=== PATIENT | male | born 1990 | race Caucasian/White ===

== ENCOUNTER 2019-09-01 18:40 | Inpatient (IN) ==
--- NOTE | 2019-09-01 19:09 | ERNOTE ---
Abdominal HPI - Narrative Date of Service: 09/01/19 - General Chief Complaint: Abdominal Pain Time Seen by Provider: 09/01/19 18:52 Source: patient Exam Limitations: no limitations - Immun/Allergies/Home Medications Immunizatons: IMMUNIZATION HX Immunizations Up to Date Yes History of Influenza Vaccine No Hx Pneumococcal Vaccination No Allergies/Adverse Reactions: Allergies diphenhydramine HCl [From Benadryl] Allergy (Verified 08/22/19 10:52) Home Medications: HOME MEDICATIONS Atorvastatin Calcium 40 mg PO HS 10/03/15 [Last Taken 10/02/15 22:00] Aspirin 81 mg PO DAILY 10/04/15 [Last Taken 10/03/15 11:00 81] metoprolol tartrate 50 mg tablet 150 mg PO BID tab 04/27/18 [Last Taken Unknown] spironolactone 50 mg tablet 50 mg PO DAILY 08/22/19 [Last Taken Unknown] methylprednisolone 4 mg tablets in a dose pack See Rx Instructions PO PER PKG DIR #21 tab 08/26/19 [Last Taken Unknown] Losartan Potassium 25 mg PO DAILY 09/01/19 [Last Taken Unknown] Verapamil HCl [Verapamil ER] 360 mg PO DAILY 09/01/19 [Last Taken Unknown] - History of Present Illness Narrative: Patient presents to the emergency room for abdominal pain since 7 AM this morning along with nausea. Patient states the pain is mid abdomen and does radiate through his back. Date (Duration): 09/01/19 Activities at Onset: none Associated Symptoms: Present: nausea Prior Abdominal Problems: Present: none Review of Systems - Review of Systems Constitutional: Present: no symptoms reported EYE: Present: no symptoms reported ENT: Present: no symptoms reported Respiratory: Present: no symptoms reported Cardiology: Present: no symptoms reported Gastrointestinal/Abdominal: Present: See HPI, nausea, abdominal pain Genitourinary: Present: no symptoms reported Musculoskeletal: Present: no symptoms reported Skin: Present: no symptoms reported Neurological: Present: no symptoms reported Endocrine: Present: no symptoms reported Hematologic/Lymphatic: Present: no symptoms reported Psych: Present: no symptoms reported All Other Systems: All systems neg except as marked Medical History (Last Reviewed 09/01/19 @ 18:48 by Sri Painting RN) Accelerated essential hypertension Onset Date: 08/10/15 HOCM (hypertrophic obstructive cardiomyopathy) Ischemic stroke Surgical History: Surgical History (Last Reviewed 09/01/19 @ 18:48 by Sri Painting RN) History of appendectomy History of cholecystectomy Onset Date: ~2016 Pacemaker Family History: Family History (Last Reviewed 09/01/19 @ 18:48 by Sri Painting RN) Father Diabetes Hypertension Mother Asthma Hypertension Social History: (Last Reviewed 09/01/19 @ 18:48 by Sri Painting RN) Social History: Marital status: Single Service: No Tobacco: Smoking Status: Never smoker Alcohol: alcohol intake: current alcohol intake frequency: holiday/special occasion Substance Use: substance use type: does not use Dietary Habits: caffeine: Yes Physical Exam - Physical Exam Narrative: Patient has mild tenderness with palpation to right upper quadrant and middle abdominal area. Denies back pain but states pain does radiate through to the back General Appearance: Present: wd/wn, alert, no apparent distress Head Exam: Present: normal inspection, no evidence of injury Eye Exam: Normal inspection: bilateral Ears, Nose, Throat: Present: normal ENT inspection, normal pharynx Neck: Present: normal inspection, nontender Respiratory: Present: no respiratory distress, normal breath sounds, no accessory muscle use, chest nontender Cardiovascular/Chest: Present: regular rate, rhythm, no murmur Gastrointestinal/Abdominal: Present: normal bowel sounds, soft, tenderness Back Exam: Present: normal inspection, no CVA tenderness, no vertebral tenderness Extremity Exam: Present: normal inspection, normal range of motion Neurological Exam: Present: alert, oriented, normal mood/affect, no motor/sensory deficits Skin Exam: Present: normal color, warm/dry Lymphatic Exam: Present: no adenopathy Progress - Results and Orders Patient's Lab Results:: I have reviewed the patient's lab results. - Vital Signs Patient's Vital Signs:: I have reviewed the patient's vital signs. Vital Signs: Vital Signs 09/01/19 18:43 Temperature 36.6 C Pulse Rate 68 Respiratory Rate 18 Blood Pressure 193/105 H O2 Sat by Pulse Oximetry 97 - X-Ray X-Ray #1 X-Ray: abdomen Interpretation: Reviewed by me X-ray Comments: Nonobstructive bowel pattern - CT/Ultrasound CT/Ultrasound Narrative: Acute pancreatitis, moderate peripancreatic inflammatory changes with ill- defined fluid consistent with acute pancreatitis - Progress/Reassessment Chief Complaint: Abdominal Pain Progress:: Improved Plan - Plan Plan: Patient will be admitted for acute pancreatitis Departure Clinical Impression: Pancreatitis, acute Qualifiers: Pancreatitis type: unspecified pancreatitis type Acute pancreatitis co mplication: unspecified Qualified Code(s): K85.90 - Acute pancreatitis without necrosis or infection, unspecified - Departure Disposition: Short Term Hospital Inpatient Condition: Stable Referrals: Leilani Guerrero MD [Primary Care Provider] -
[2019-09-01 19:11] LABS: Hematocrit 47.7 % (42.0-52.0); Hemoglobin 16.6 gm/dL (13.5-18.0); Mean Cell Volume 89.2 fl (78-100); Mean Corpuscular Hgb Conc 34.8 g/dl (32-36); Mean Platelet Volume 9.8 fl (8-11.3); Neutrophil # 13.2 K/mm3 (1.3-6.0); Neutrophil % 86.2 % (42-75.0); Platelet Count 276 K/mm3 (150-450); Red Blood Count 5.35 M/mm3 (4.7-6.0); Red Cell Distribution Width 13.4 % (11.5-14.0); White Blood Count 15.3 K/mm3 (4.0-10.5)
[2019-09-01 19:22] LABS: Prothrombin Time (Patient) 10.2 Seconds (9.1-10.7)
[2019-09-01 19:26] LABS: Albumin * 4.2 gm/dl (3.4-5.0); Anion Gap 16.4 mmol/L (6.8-13.8); BUN/Creatinine Ratio 25.7 (9.0-21.6); Bilirubin, Total 0.5 mg/dL (0.0-1.1); Ca. Corrected For Albumin 8.7 mg/dL (8.4-10.2); Calcium * 9.2 mg/dL (7.9-10.9); Carbon Dioxide 23.1 mmol/L (24-32.6); INR 1.03 INR (0.92-1.08); Potassium 4.5 mmol/L (3.4-4.6); Total Protein 7.5 gm/dL (6.2-8.2)
[2019-09-01 19:27] LABS: Urine Appearance Clear (CLEAR); Urine Color Yellow
[2019-09-01 19:29] LABS: Urine Bilirubin Negative (NEGATIVE); Urine Ketone Negative (NEGATIVE); Urine Nitrite Negative (NEGATIVE); Urine Protein 30 mg/dL (NEGATIVE); Urine Urobilinogen Normal (NORMAL); Urine WBC None Seen /hpf (0-5); Urine pH 5.5 pH (5.0-7.0)
[2019-09-01 19:30] LABS: Urine Bacteria None Seen; Urine Blood 5 /ul (NEGATIVE); Urine RBC 0-5 /hpf (0-5)
[2019-09-01] MEDS ORDERED: cefTRIAXone SODIUM 1,000 MG/100 ML BAG IV ONE (20:03)
[2019-09-01] MEDS ORDERED: HYDROmorphone HCL 2 MG/ML VIAL IV ONE (20:29)
[2019-09-01] MEDS ORDERED: NORMAL SALINE 1,000 ML IV PRN (20:29)
[2019-09-01] MEDS: metroNIDAZOLE/SODIUM CHLORIDE 500 MG/100 ML BAG IV SCH (20:53)
[2019-09-01] MEDS ORDERED: ACETAMINOPHEN 650 MG SUPP.RECT RC PRN (22:27)
[2019-09-01] MEDS ORDERED: LIDOCAINE HCL 50 ML VIAL IM ONE (22:38)
[2019-09-01] MEDS ORDERED: NORMAL SALINE 1,000 ML IV ONE (22:56)
--- NOTE | 2019-09-01 23:19 | HP ---
Chief Complaint - Chief Complaint Date of Service: 09/01/19 Time of Service: 23:06 Chief Complaint: I have abdominal pain and nausea since this morning History of Present Illness: 29-year-old male with past medical history of accelerated hypertension, morbid obesity, hypertrophic obstructive cardiomyopathy, ischemic stroke, acute pancreatitis, pacemaker status, cholecystectomy, appendectomy was evaluated in the ER due to severe epigastric abdominal pain accompanied by nausea that started this morning at his home. Patient reports his pain started shortly after eating 2 pieces of laughlin he developed the pain in his epigastric region that radiated to his back. He rates 8 out of 10 intensity and is sharp in nature. Patient reports having a similar pain a year and a half ago when he was diagnosed with acute pancreatitis due to an unknown cause. Patient denies any fever, chills, or vomiting. He is under the care of a devops to manage his HOCM, and has a pacemaker in place. He is currently being managed with beta-blockers, spironolactone, and other antihypertensives. Patient was found to have elevated pancreatic enzymes and leukocytosis on labs which makes a diagnosis of acute pancreatitis very likely. Given his cardiac condition, we will hydrate him mildly and carefully to avoid fluid overload or pulmonary edema. Medical History (Last Reviewed 09/01/19 @ 21:17 by Preeti Gudino RN) Accelerated essential hypertension Onset Date: 08/10/15 HOCM (hypertrophic obstructive cardiomyopathy) Ischemic stroke Surgical History: Surgical History (Last Reviewed 09/01/19 @ 21:17 by Preeti Gudino RN) History of appendectomy History of cholecystectomy Onset Date: ~2015 Pacemaker Family History: Family History (Last Reviewed 09/01/19 @ 21:17 by Preeti Gudino RN) Father Diabetes Hypertension Mother Asthma Hypertension Social History: (Last Reviewed 09/01/19 @ 21:17 by Preeti Gudino RN) Social History: Marital status: Single Service: No Tobacco: Smoking Status: Never smoker Alcohol: alcohol intake: current alcohol intake frequency: holiday/special occasion Substance Use: substance use type: does not use Dietary Habits: caffeine: Yes Peds Patient Hx - Developmental: No Pertinent Hx Peds Patient Hx - Medical: No Pertinent Hx Peds Patient Hx - Cardiac/Respiratory: No Pertinent Hx Peds Patient Hx - Surgical: No Surgical History Patient History - Cancer: No Hx of Cancer Review Of Systems (GEN) - Review of Systems Generalized/Overall Review: Present: No Symptoms Reported EENTM: Present: No Symptoms Reported Respiratory: Present: No Symptoms Reported Cardiac: Present: No Symptoms Reported Abdominal: Present: Nausea, Abdominal Pain - Epigastric pain Genitourinary: Present: No Symptoms Reported Musculoskeletal: Present: No Symptoms Reported Neurological: Present: No Symptoms Reported Skin: Present: No Symptoms Reported Endocrine: Present: No Symptoms Reported Immunizations: IMMUNIZATION HX Immunizations Up to Date Yes History of Influenza Vaccine No Hx Pneumococcal Vaccination No Allergies/Adverse Reactions: Allergies Allergy/AdvReac Type Severity Reaction Status Date / Time diphenhydramine HCl Allergy Ver[facility] 08/22/19 10:52 [facility] Home Medications: HOME MEDICATIONS Atorvastatin Calcium 40 mg PO HS 10/03/15 [Last Taken 10/02/15 22:00] Aspirin 81 mg PO DAILY 10/04/15 [Last Taken 10/03/15 11:00 81] metoprolol tartrate 50 mg tablet 150 mg PO BID tab 04/27/18 [Last Taken Unknown] spironolactone 50 mg tablet 50 mg PO DAILY 08/22/19 [Last Taken Unknown] methylprednisolone 4 mg tablets in a dose pack See Rx Instructions PO PER PKG DIR #21 tab 08/26/19 [Last Taken Unknown] Losartan Potassium 25 mg PO DAILY 09/01/19 [Last Taken Unknown] Verapamil HCl [Verapamil ER] 360 mg PO DAILY 09/01/19 [Last Taken Unknown] Exam - Exam Vital Signs: Vital Signs - Last Taken Temp 36.2 C 09/01/19 21:25 Pulse 72 09/01/19 22:30 Resp 18 09/01/19 21:25 BP 169/106 H 09/01/19 21:25 Pulse Ox 97 09/01/19 21:25 Constitutional: Present: Alert, Oriented x3, Cooperative, Well developed, Well nourished, No distress, Morbidly obese ENT Exam: Present: normal ENT inspection, hearing grossly normal, pharynx normal, TMs normal Eye Exam: bilateral eye: normal inspection, PERRL, EOMI Neck: Present: non-tender, full range of motion, supple, normal inspection, trachea midline Back Exam: Present: normal inspection, no CVA tenderness, no vertebral tenderness Breasts: Present: Exam deferred Respiratory: Present: chest non-tender, lungs clear, normal breath sounds, no respiratory distress, no accessory muscle use Cardiovascular/Chest: Present: normal peripheral pulses, regular rate, rhythm, no chest tenderness, no edema, no gallop, no JVD, no murmur, no rub Peripheral Pulses: carotid (R): 3+, carotid (L): 3+, femoral (R): 3+, femoral (L): 3+, dorsalis-pedis (R): 3+, dorsalis-pedis (L): 3+ Abdomen: Present: Normal bowel sounds, soft, no masses, obese, tender - Epigastric and left flank tenderness on deep palpation, guarding /Rectal: Present: Exam deferred Extremity: Present: normal range of motion, non-tender, normal inspection, no pedal edema, no calf tenderness, normal capillary refill, pelvis stable Skin Exam: Present: normal color, warm/dry, no cyanosis Lymphatic: Present: no adenopathy Neurologic: Present: senior energy market coordinator II-XII nml as tested, normal cerebellar test, no motor/sensory deficits, alert, normal mood/affect, oriented x 3 Appearance: Present: appropriate appearance, appropriate insight, neat, no memory impairment Eye contact: Present: cooperative, good eye contact, normal speech, avoids eye contact Thoughts: Present: normal thought pattern, no apparent hallucination Diagnostic Studies: Abnormal Lab Results 09/01/19 09/01/19 09/01/19 Range/Units 18:53 18:58 19:00 WBC 15.3 H (4.0-10.5) K/mm3 Immature Gran % (Auto) 0.70 H (0.001-0.429) % Immature Gran # (Auto) 0.10 H (0.000-0.0310) K/mm3 Neutrophils % 86.2 H (42-75.0) % Lymphocytes % 8.1 L (20-51) % Neutrophils # 13.2 H (1.3-6.0) K/mm3 Lymphocytes # 1.23 L (1.5-3.5) k/mm3 Carbon Dioxide 23.1 L (24-32.6) mmol/L Anion Gap 16.4 H (6.8-13.8) mmol/L BUN 29 H (6-23) mg/dL BUN/Creatinine Ratio 25.7 H (9.0-21.6) Random Glucose 284 H (70-110) mg/dL Lactic Acid, Venous (0.4-2.0) mmol/L ALT 79 H (19-67) U/L Lipase 7362 H (73-393) U/L Urine Protein 30 H (NEGATIVE) mg/dL Urine Glucose (UA) >=1000 H (NEGATIVE) mg/dL Urine Blood 5 H (NEGATIVE) /ul 09/01/19 09/01/19 Range/Units 19:00 22:00 WBC (4.0-10.5) K/mm3 Immature Gran % (Auto) (0.001-0.429) % Immature Gran # (Auto) (0.000-0.0310) K/mm3 Neutrophils % (42-75.0) % Lymphocytes % (20-51) % Neutrophils # (1.3-6.0) K/mm3 Lymphocytes # (1.5-3.5) k/mm3 Carbon Dioxide (24-32.6) mmol/L Anion Gap (6.8-13.8) mmol/L BUN (6-23) mg/dL BUN/Creatinine Ratio (9.0-21.6) Random Glucose (70-110) mg/dL Lactic Acid, Venous 2.8 H* 2.8 H* (0.4-2.0) mmol/L ALT (19-67) U/L Lipase (73-393) U/L Urine Protein (NEGATIVE) mg/dL Urine Glucose (UA) (NEGATIVE) mg/dL Urine Blood (NEGATIVE) /ul Laboratory Results WBC 15.3 K/mm3 (4.0-10.5) H 09/01/19 18:53 RBC 5.35 M/mm3 (4.7-6.0) 09/01/19 18:53 Hgb 16.6 gm/dL (13.5-18.0) 09/01/19 18:53 Hct 47.7 % (42.0-52.0) 09/01/19 18:53 MCV 89.2 fl (78-100) 09/01/19 18:53 MCH 31.0 pg (27-31) 09/01/19 18:53 MCHC 34.8 g/dl (32-36) 09/01/19 18:53 RDW 13.4 % (11.5-14.0) 09/01/19 18:53 Plt Count 276 K/mm3 (150-450) 09/01/19 18:53 MPV 9.8 fl (8-11.3) 09/01/19 18:53 Immature Gran % (Auto) 0.70 % (0.001-0.429) H 09/01/19 18:53 Immature Gran # (Auto) 0.10 K/mm3 (0.000-0.0310) H 09/01/19 18:53 Neutrophils % 86.2 % (42-75.0) H 09/01/19 18:53 Lymphocytes % 8.1 % (20-51) L 09/01/19 18:53 Monocytes % 4.4 % (0.0-9) 09/01/19 18:53 Eosinophils % 0.3 % (0.0-3.0) 09/01/19 18:53 Basophils % 0.3 % (0.0-1.0) 09/01/19 18:53 Nucleated RBC % 0.0 k/mm3 (0-1) 09/01/19 18:53 Neutrophils # 13.2 K/mm3 (1.3-6.0) H 09/01/19 18:53 Lymphocytes # 1.23 k/mm3 (1.5-3.5) L 09/01/19 18:53 Monocytes # 0.7 k/mm3 (0.0-1.0) 09/01/19 18:53 Eosinophils # 0.1 k/mm3 (0.0-0.7) 09/01/19 18:53 Absolute Basophils 0.0 k/mm3 (0.0-0.1) 09/01/19 18:53 PT 10.2 Seconds (9.1-10.7) 09/01/19 19:00 INR (Anticoag Therapy) 1.03 INR (0.92-1.08) 09/01/19 19:00 Sodium 133 mmol/L (132-142) 09/01/19 19:00 Plasma Sodium 136 mmol/L (130-142) 09/01/19 19:00 Potassium 4.5 mmol/L (3.4-4.6) 09/01/19 19:00 Chloride 98 mmol/L (97-106) 09/01/19 19:00 Carbon Dioxide 23.1 mmol/L (24-32.6) L 09/01/19 19:00 Anion Gap 16.4 mmol/L (6.8-13.8) H 09/01/19 19:00 BUN 29 mg/dL (6-23) H 09/01/19 19:00 Creatinine 1.13 mg/dL (0.4-1.4) 09/01/19 19:00 Est GFR (Non-Af Amer) 80 mL/min (60-130) 09/01/19 19:00 BUN/Creatinine Ratio 25.7 (9.0-21.6) H 09/01/19 19:00 Random Glucose 284 mg/dL (70-110) H 09/01/19 19:00 Lactic Acid, Venous 2.8 mmol/L (0.4-2.0) H* 09/01/19 22:00 Calcium 9.2 mg/dL (7.9-10.9) 09/01/19 19:00 Calcium Adj for Albumin 8.7 mg/dL (8.4-10.2) 09/01/19 19:00 Total Bilirubin 0.5 mg/dL (0.0-1.1) 09/01/19 19:00 AST 31 U/L (0-48) 09/01/19 19:00 ALT 79 U/L (19-67) H 09/01/19 19:00 Alkaline Phosphatase 75 U/L (50-170) 09/01/19 19:00 C-Reactive Prot, Quant 0.4 mg/dL (0.0-0.9) 09/01/19 22:05 Total Protein 7.5 gm/dL (6.2-8.2) 09/01/19 19:00 Albumin 4.2 gm/dl (3.4-5.0) 09/01/19 19:00 Lipase 7362 U/L (73-393) H 09/01/19 19:00 Urine Color Yellow 09/01/19 18:58 Urine Appearance Clear (CLEAR) 09/01/19 18:58 Urine pH 5.5 pH (5.0-7.0) 09/01/19 18:58 Ur Specific [place] 1.030 SP.GR. (1.005-1.030) 09/01/19 18:58 Urine Protein 30 mg/dL (NEGATIVE) H 09/01/19 18:58 Urine Glucose (UA) >=1000 mg/dL (NEGATIVE) H 09/01/19 18:58 Urine Ketones Negative mg/dL (NEGATIVE) 09/01/19 18:58 Urine Blood 5 /ul (NEGATIVE) H 09/01/19 18:58 Urine Nitrate Negative (NEGATIVE) 09/01/19 18:58 Urine Bilirubin Negative mg/dl (NEGATIVE) 09/01/19 18:58 Prot Sulfosalicylic Acd 1+ mg/dL (0) 09/01/19 18:58 Urine Urobilinogen Normal EU/dl (NORMAL) 09/01/19 18:58 Ur Leukocyte Esterase Negative /ul (NEGATIVE) 09/01/19 18:58 Urine RBC 0-5 /hpf (0-5) 09/01/19 18:58 Urine WBC None seen /hpf (0-5) 09/01/19 18:58 Ur Epithelial Cells 0-5 /hpf (0-5) 09/01/19 18:58 Urine Bacteria None seen (NONE) 09/01/19 18:58 Urine Culture Comments No culture indicated 09/01/19 18:58 Assessment/Plan - Narrative Narrative: Patient was evaluated and medical chart was reviewed and decision to admit to our [facility] floor for diagnosis of acute pancreatitis was made. Patient was found to have elevated lactic acid and leukocytosis, IV antibiotics and IV fluids were started. Due to the patient's extensive cardiac history and high risk for fluid overload, will only manage with mild hydration for his acute pancreatitis. Patient was placed n.p.o. and pain medications were ordered to be given on a as needed basis, antiemetics were also ordered on an as-needed basis. His blood pressure is elevated at the moment so his antihypertensives were gagan nciled to be administered during hospitalization. Daily pancreatic enzymes were ordered to follow-up on his acute pancreatitis. - Assessment/Plan (1) Pancreatitis, acute Problem: Acute Qualifiers: Pancreatitis type: unspecified pancreatitis type Acute pancreatitis complication: unspecified Qualified Code(s): K85.90 - Acute pancreatitis without necrosis or infection, unspecified (2) Abdominal pain Problem: Acute (3) Nausea Problem: Acute (4) HOCM (hypertrophic obstructive cardiomyopathy) Problem: Acute (5) H/O acute pancreatitis Problem: Acute (6) HTN (hypertension) Problem: Acute
[2019-09-01] MEDS: METOPROLOL TARTRATE 50 MG TABLET PO SCH (23:30)
[2019-09-01] MEDS: ROSUVASTATIN CALCIUM 20 MG TABLET PO SCH (23:30)
[2019-09-01] MEDS: MEPERIDINE HCL/PF 50 MG/ML SYRG IV PRN (23:30)
[2019-09-01] MEDS: ONDANSETRON HCL 4 MG TABLET PO PRN (23:30)
[2019-09-02] MEDS: FAMOTIDINE 20 MG in DEXTROSE 5 % IN WATER 100 ML IV SCH ×6 (00:22→21:44)
[2019-09-02] MEDS: metroNIDAZOLE/SODIUM CHLORIDE 500 MG/100 ML BAG IV SCH ×4 (03:19→20:15)
[2019-09-02 06:19] LABS: Hemoglobin 15.3 gm/dL (13.5-18.0); Mean Cell Volume 90.2 fl (78-100); Mean Corpuscular Hemoglobin 31.4 pg (27-31); Mean Corpuscular Hgb Conc 34.8 g/dl (32-36); Mean Platelet Volume 9.9 fl (8-11.3); Neutrophil # 13.5 K/mm3 (1.3-6.0); Neutrophil % 85.7 % (42-75.0); Platelet Count 264 K/mm3 (150-450); Red Blood Count 4.88 M/mm3 (4.7-6.0); Red Cell Distribution Width 13.7 % (11.5-14.0); White Blood Count 15.7 K/mm3 (4.0-10.5)
[2019-09-02 06:46] LABS: Hemoglobin A1C 6.7 % (4.00-6.0)
[2019-09-02 06:47] LABS: Albumin * 3.8 gm/dl (3.4-5.0); Anion Gap 15.7 mmol/L (6.8-13.8); Bilirubin, Total 0.5 mg/dL (0.0-1.1); Ca. Corrected For Albumin 8.6 mg/dL (8.4-10.2); Calcium * 8.8 mg/dL (7.9-10.9); Carbon Dioxide 23.6 mmol/L (24-32.6); Potassium 4.3 mmol/L (3.4-4.6)
[2019-09-02] MEDS: MEPERIDINE HCL/PF 50 MG/ML SYRG IV PRN ×3 (07:05→18:50)
[2019-09-02] MEDS: LOSARTAN POTASSIUM 50 MG TABLET PO SCH ×2 (07:05→08:19)
[2019-09-02] MEDS: VERAPAMIL HCL 180 MG TABLET.SA PO SCH (08:19)
[2019-09-02] MEDS: ASPIRIN 81 MG TABLET.DR PO SCH (08:19)
[2019-09-02] MEDS: SPIRONOLACTONE 25 MG TABLET PO SCH (08:19)
[2019-09-02] MEDS: METOPROLOL TARTRATE 50 MG TABLET PO SCH ×2 (08:20→20:16)
[2019-09-02] MEDS ORDERED: LOSARTAN POTASSIUM 50 MG TABLET PO SCH (09:00)
[2019-09-02] MEDS: CLONIDINE HCL 0.1 MG TABLET PO SCH ×2 (10:57→20:16)
[2019-09-02] MEDS: ONDANSETRON HCL 4 MG TABLET PO PRN (10:57)
--- NOTE | 2019-09-02 11:07 | PN ---
Subjective - Date and Time Seen Date: 09/02/19 Time: 10:56 Subjective Narrative: My pain is better but I have nausea will give me pain meds. Objective Objective Narrative: 29-year-old male admitted for acute pancreatitis was evaluated at bedside he was found to be afebrile and in no acute distress. Patient is resting comfortably and reports improvement in his epigastric pain. However he does mention nausea when he is administered he is pain medication, So he was informed that there is Zofran available to him on an as-needed basis. Labs this morning demonstrate improvement of pancreatic enzymes, lipase has decreased by 1999 since admission. His leukocytosis however has persists despite double coverage with IV antibiotics, will follow up with this with labs in the morning and if necessary we will switch antibiotics. In the meantime the patient will be kept n.p.o. for bowel rest as well as pancreatic rest. Of importance, he was found to have an A1c of 6.7. Patient denies ever being diagnosed with type 2 diabetes so he was informed of the diagnosis and was provided with education on management of diabetes. It was explained to him that the majority of his comorbidities are most likely secondary and related to his morbid and significant obesity so after talking to him he said he would make an effort to address the issue. We will reevaluate him in the morning and follow-up on labs. - Review of Systems Generalized/Overall Review: Reports: No Symptoms Reported EENTM: Reports: No Symptoms Reported Respiratory: Reports: No Symptoms Reported Cardiac: Reports: No Symptoms Reported Abdominal: Reports: Nausea, Abdominal Pain Genitourinary Symptoms: Reports: No Symptoms Reported Musculoskeletal Complaints: Reports: Back Pain Neurological: Reports: No Symptoms Reported Skin: Reports: No Symptoms Reported Endocrine: Reports: No Symptoms Reported - Vitals Vitals: Last Vital Signs Temp 36.7 C 09/02/19 10:22 Pulse 65 09/02/19 10:22 Resp 18 09/02/19 10:22 BP 169/97 H 09/02/19 10:25 Pulse Ox 95 09/02/19 10:22 - Abnormal Lab Findings Abnormal Lab Findings: Abnormal Lab Results 09/01/19 09/01/19 09/01/19 Range/Units 18:53 18:58 19:00 WBC 15.3 H (4.0-10.5) K/mm3 MCH (27-31) pg Immature Gran % (Auto) 0.70 H (0.001-0.429) % Immature Gran # (Auto) 0.10 H (0.000-0.0310) K/mm3 Neutrophils % 86.2 H (42-75.0) % Lymphocytes % 8.1 L (20-51) % Neutrophils # 13.2 H (1.3-6.0) K/mm3 Lymphocytes # 1.23 L (1.5-3.5) k/mm3 Carbon Dioxide 23.1 L (24-32.6) mmol/L Anion Gap 16.4 H (6.8-13.8) mmol/L BUN 29 H (6-23) mg/dL BUN/Creatinine Ratio 25.7 H (9.0-21.6) Random Glucose 284 H (70-110) mg/dL Hemoglobin A1c (4.00-6.0) % Lactic Acid, Venous (0.4-2.0) mmol/L ALT 79 H (19-67) U/L Amylase (25-115) U/L Lipase 7362 H (73-393) U/L Urine Protein 30 H (NEGATIVE) mg/dL Urine Glucose (UA) >=1000 H (NEGATIVE) mg/dL Urine Blood 5 H (NEGATIVE) /ul 09/01/19 09/01/19 09/02/19 Range/Units 19:00 22:00 06:16 WBC 15.7 H (4.0-10.5) K/mm3 MCH 31.4 H (27-31) pg Immature Gran % (Auto) (0.001-0.429) % Immature Gran # (Auto) 0.06 H (0.000-0.0310) K/mm3 Neutrophils % 85.7 H (42-75.0) % Lymphocytes % 7.8 L (20-51) % Neutrophils # 13.5 H (1.3-6.0) K/mm3 Lymphocytes # 1.23 L (1.5-3.5) k/mm3 Carbon Dioxide (24-32.6) mmol/L Anion Gap (6.8-13.8) mmol/L BUN (6-23) mg/dL BUN/Creatinine Ratio (9.0-21.6) Random Glucose (70-110) mg/dL Hemoglobin A1c (4.00-6.0) % Lactic Acid, Venous 2.8 H* 2.8 H* (0.4-2.0) mmol/L ALT (19-67) U/L Amylase (25-115) U/L Lipase (73-393) U/L Urine Protein (NEGATIVE) mg/dL Urine Glucose (UA) (NEGATIVE) mg/dL Urine Blood (NEGATIVE) /ul 09/02/19 09/02/19 Range/Units 06:16 06:16 WBC (4.0-10.5) K/mm3 MCH (27-31) pg Immature Gran % (Auto) (0.001-0.429) % Immature Gran # (Auto) (0.000-0.0310) K/mm3 Neutrophils % (42-75.0) % Lymphocytes % (20-51) % Neutrophils # (1.3-6.0) K/mm3 Lymphocytes # (1.5-3.5) k/mm3 Carbon Dioxide 23.6 L (24-32.6) mmol/L Anion Gap 15.7 H (6.8-13.8) mmol/L BUN 24 H (6-23) mg/dL BUN/Creatinine Ratio 25.0 H (9.0-21.6) Random Glucose 222 H (70-110) mg/dL Hemoglobin A1c 6.7 H (4.00-6.0) % Lactic Acid, Venous (0.4-2.0) mmol/L ALT (19-67) U/L Amylase 321 H (25-115) U/L Lipase 5319 H (73-393) U/L Urine Protein (NEGATIVE) mg/dL Urine Glucose (UA) (NEGATIVE) mg/dL Urine Blood (NEGATIVE) /ul - Exam Constitutional: Present: Alert, Oriented x3, Cooperative, Well developed, Well nourished, No distress, Young, Morbidly obese ENT Exam: Present: normal ENT inspection, hearing grossly normal, pharynx normal, TMs normal Neck: Present: non-tender, full range of motion, supple, normal inspection, trachea midline Breasts: Present: Exam deferred Respiratory: Present: chest non-tender, lungs clear, normal breath sounds, no respiratory distress, no accessory muscle use Cardiovascular/Chest: Present: normal peripheral pulses, regular rate, rhythm, no chest tenderness, no edema, no gallop, no JVD, no murmur, no rub Abdomen: Present: Normal bowel sounds, soft, nondistended, no rebound tenderness, no hepatospenomegaly, no masses, obese, tender - Mild epigastric tenderness on deep palpation /Rectal: Present: Exam deferred Extremity: Present: normal range of motion, non-tender, normal inspection, no pedal edema, no calf tenderness, normal capillary refill Skin Exam: Present: normal color, warm/dry, no cyanosis Lymphatic: Present: no adenopathy Neurologic: Present: roving can tender II-XII nml as tested, normal cerebellar test, no motor/sensory deficits, alert, normal mood/affect, oriented x 3 Appearance: Present: appropriate appearance, appropriate insight, neat, no memory impairment Eye contact: Present: cooperative, good eye contact, normal speech Thoughts: Present: normal thought pattern, no apparent hallucination Assessment/Plan Plan Narrative: We will continue following daily and pancreatic enzymes and keep the patient on IV fluids and IV antibiotics. We will reevaluate him in the morning in hopes to initiate at least a liquid diet and see how he tolerates. He reports improvement in his abdominal pain so we will continue the pain medications. Patient was informed that he is officially diagnosed with type 2 diabetes therefore a consultation with a dietitian for diabetes education and teaching on lifestyle modification to manage diabetes was placed. Catapres was also added to the patient's treatment for better management of his high blood pressure although he does admit that his blood pressure usually runs High. - Problems/Diagnosis (1) Pancreatitis, acute Problem: Acute Qualifiers: Pancreatitis type: idiopathic Acute pancreatitis complication: unspecified Qualified Code(s): K85.00 - Idiopathic acute pancreatitis without necrosis or infection (2) Abdominal pain Problem: Acute (3) Nausea Problem: Acute (4) HOCM (hypertrophic obstructive cardiomyopathy) Problem: Acute (5) H/O acute pancreatitis Problem: Acute (6) HTN (hypertension) Problem: Acute (7) Uncontrolled hypertension Problem: Chronic (8) New onset type 2 diabetes mellitus Problem: Acute
[2019-09-02] MEDS: POTASSIUM CHLORIDE 20 MEQ in DEXTROSE 5%-0.5 NORMAL SALINE 990 ML IV SCH (12:02)
[2019-09-02] MEDS: INSULIN REGULAR, HUMAN 100 UNITS/ML VIAL SC SCH ×3 (12:05→20:20)
[2019-09-02] MEDS: ROSUVASTATIN CALCIUM 20 MG TABLET PO SCH (20:17)
[2019-09-03] MEDS: POTASSIUM CHLORIDE 20 MEQ in DEXTROSE 5%-0.5 NORMAL SALINE 990 ML IV SCH ×2 (00:30→11:42)
[2019-09-03] MEDS: metroNIDAZOLE/SODIUM CHLORIDE 500 MG/100 ML BAG IV SCH ×2 (03:59→12:19)
[2019-09-03 06:20] LABS: Hematocrit 41.3 % (42.0-52.0); Hemoglobin 13.8 gm/dL (13.5-18.0); Mean Cell Volume 92.6 fl (78-100); Mean Corpuscular Hemoglobin 30.9 pg (27-31); Mean Corpuscular Hgb Conc 33.4 g/dl (32-36); Mean Platelet Volume 10.3 fl (8-11.3); Neutrophil # 9.1 K/mm3 (1.3-6.0); Neutrophil % 76.8 % (42-75.0); Platelet Count 208 K/mm3 (150-450); Red Blood Count 4.46 M/mm3 (4.7-6.0); Red Cell Distribution Width 13.8 % (11.5-14.0); White Blood Count 11.9 K/mm3 (4.0-10.5)
[2019-09-03 06:38] LABS: Albumin * 3.3 gm/dl (3.4-5.0); Anion Gap 15.6 mmol/L (6.8-13.8); BUN/Creatinine Ratio 20.2 (9.0-21.6); Bilirubin, Total 0.6 mg/dL (0.0-1.1); Ca. Corrected For Albumin 8.7 mg/dL (8.4-10.2); Calcium * 8.5 mg/dL (7.9-10.9); Carbon Dioxide 24.5 mmol/L (24-32.6); Potassium 4.1 mmol/L (3.4-4.6); Total Protein 6.5 gm/dL (6.2-8.2)
[2019-09-03] MEDS: INSULIN REGULAR, HUMAN 100 UNITS/ML VIAL SC SCH ×2 (07:32→11:19)
[2019-09-03] MEDS: MEPERIDINE HCL/PF 50 MG/ML SYRG IV PRN (08:33)
[2019-09-03] MEDS: SPIRONOLACTONE 25 MG TABLET PO SCH (08:40)
[2019-09-03] MEDS: ASPIRIN 81 MG TABLET.DR PO SCH (08:40)
[2019-09-03] MEDS: VERAPAMIL HCL 180 MG TABLET.SA PO SCH (08:42)
[2019-09-03] MEDS: CLONIDINE HCL 0.1 MG TABLET PO SCH (08:44)
[2019-09-03] MEDS: LOSARTAN POTASSIUM 50 MG TABLET PO SCH (08:45)
[2019-09-03] MEDS: METOPROLOL TARTRATE 50 MG TABLET PO SCH (08:46)
[2019-09-03] MEDS: ONDANSETRON HCL 4 MG TABLET PO PRN (08:56)
[2019-09-03] MEDS: FAMOTIDINE 20 MG in DEXTROSE 5 % IN WATER 100 ML IV SCH ×2 (08:57)
[2019-09-03] MEDS ORDERED: METOPROLOL TARTRATE 1 MG/ML AMPUL IV ONE (09:02)
--- NOTE | 2019-09-03 09:18 | PN ---
Subjective - Date and Time Seen Date: 09/03/19 Time: 09:10 Subjective Narrative: My pain is better, just a little uncomfortable Objective Objective Narrative: 29-year-old male admitted for acute pancreatitis was evaluated at bedside he was found to be afebrile and in no acute distress. Patient has shown significant clinical improvement since arriving on the floor, he reports much improvement of his epigastric pain especially since his pain medications were increased. His pancreatic enzymes this morning has gone down 6000 points since arriving trending down towards normal, and his leukocytosis has almost comp letely resolved after he was covered with dual therapy with antibiotics. The only concern at this time is that his blood pressure has remained elevated despite the addition of Catapres during rounds yesterday. He was just administered all of his morning meds so we will reevaluate his blood pressure after he has taken his antihypertensives and make necessary changes. Orders for clear liquid diet was placed we will progress his diet gradually. Patient was informed yesterday that he is now officially diagnosed with type 2 diabetes, the dietitian was consulted for education on diabetes and diabetic diet. Blood sugars are better this morning and are being managed with an insulin scale. We will continue to monitor him during the day and see if he is able to tolerate oral intake in order to progress his diet. - Review of Systems Generalized/Overall Review: Reports: No Symptoms Reported EENTM: Reports: No Symptoms Reported Respiratory: Reports: No Symptoms Reported Cardiac: Reports: No Symptoms Reported Abdominal: Reports: Abdominal Pain Genitourinary Symptoms: Reports: No Symptoms Reported Musculoskeletal Complaints: Reports: No Symptoms Reported Neurological: Reports: No Symptoms Reported Skin: Reports: No Symptoms Reported Endocrine: Reports: No Symptoms Reported - Vitals Vitals: Last Vital Signs Temp 37.0 C 09/03/19 06:47 Pulse 81 09/03/19 08:46 Resp 20 09/03/19 06:47 BP 187/101 H 09/03/19 08:46 Pulse Ox 96 09/03/19 06:47 - Abnormal Lab Findings Abnormal Lab Findings: Abnormal Lab Results 09/03/19 09/03/19 Range/Units 06:05 06:05 WBC 11.9 H D (4.0-10.5) K/mm3 RBC 4.46 L (4.7-6.0) M/mm3 Hct 41.3 L (42.0-52.0) % Immature Gran # (Auto) 0.05 H (0.000-0.0310) K/mm3 Neutrophils % 76.8 H (42-75.0) % Lymphocytes % 15.1 L (20-51) % Neutrophils # 9.1 H (1.3-6.0) K/mm3 Anion Gap 15.6 H (6.8-13.8) mmol/L Random Glucose 185 H (70-110) mg/dL Albumin 3.3 L (3.4-5.0) gm/dl Amylase 122 H (25-115) U/L Lipase 1710 H (73-393) U/L - Exam Constitutional: Present: Alert, Oriented x3, Cooperative, Well developed, Well nourished, No distress, Young, Morbidly obese ENT Exam: Present: normal ENT inspection, hearing grossly normal, pharynx normal, TMs normal Neck: Present: non-tender, full range of motion, supple, normal inspection, trachea midline Breasts: Present: Exam deferred Respiratory: Present: chest non-tender, lungs clear, normal breath sounds, no respiratory distress, no accessory muscle use Cardiovascular/Chest: Present: normal peripheral pulses, regular rate, rhythm, no chest tenderness, no edema, no gallop, no JVD, no murmur, no rub Abdomen: Present: Normal bowel sounds, soft, nondistended, no rebound tenderness, no hepatospenomegaly, no masses, obese, tender - Mild epigastric tenderness to deep palpation /Rectal: Present: Exam deferred Extremity: Present: normal range of motion, non-tender, normal inspection, no pedal edema, no calf tenderness, normal capillary refill Skin Exam: Present: normal color, warm/dry, no cyanosis Lymphatic: Present: no adenopathy Neurologic: Present: non profit job titles II-XII nml as tested, normal cerebellar test, no motor/sensory deficits, alert, normal mood/affect, oriented x 3 Appearance: Present: appropriate appearance, appropriate insight, neat, no memory impairment Eye contact: Present: cooperative, good eye contact, normal speech Thoughts: Present: normal thought pattern, no apparent hallucination Assessment/Plan Plan Narrative: Orders to initiate diet with a clear liquid with subsequent progression to a low-fat/consistent carb diet were placed. We will reevaluate blood pressure and make necessary changes for better control. - Problems/Diagnosis (1) Pancreatitis, acute Problem: Acute Qualifiers: Pancreatitis type: idiopathic Acute pancreatitis complication: unspecified Qualified Code(s): K85.00 - Idiopathic acute pancreatitis without necrosis or infection (2) Abdominal pain Problem: Acute (3) Nausea Problem: Acute (4) HOCM (hypertrophic obstructive cardiomyopathy) Problem: Acute (5) H/O acute pancreatitis Problem: Acute (6) HTN (hypertension) Problem: Acute (7) Uncontrolled hypertension Problem: Chronic (8) New onset type 2 diabetes mellitus Problem: Acute
--- NOTE | 2019-09-03 13:39 | DS ---
(1) Pancreatitis, acute Problem: Acute Qualifiers: Pancreatitis type: idiopathic Acute pancreatitis complication: unspecified Qualified Code(s): K85.00 - Idiopathic acute pancreatitis without necrosis or infection (2) Abdominal pain Problem: Acute (3) Nausea Problem: Acute (4) HOCM (hypertrophic obstructive cardiomyopathy) Problem: Acute (5) H/O acute pancreatitis Problem: Acute (6) HTN (hypertension) Problem: Acute (7) Uncontrolled hypertension Problem: Chronic (8) New onset type 2 diabetes mellitus Problem: Acute Date of Discharge:: 09/03/19 Description of Stay: 29-year-old male admitted for acute pancreatitis and uncontrolled hypertension was evaluated at bedside and was found to be afebrile and in no acute distress. Patient's pancreatitis was confirmed with abdominal CT upon admission, pancreatic enzymes were monitored daily. They have decreased from 7300 down to 1700 and patient reports significant improvement of his abdominal pain. He was left n.p.o. since admission and clear liquid diet was started this morning and subsequently progressed. Patient just had lunch and he denies any abdominal pain or nausea or vomiting with breakfast or lunch. His uncontrolled hypertension has also improved with the additional antihypertensive that was added to his treatment this morning. Therefore given these findings, decision to discharge patient home with instructions to follow-up with his PCP in 1 week was made. Patient will be provided with a prescription for pain medications and will be ordered to undergo labs in 1 week to reevaluate pancreatic enzyme levels and electrolytes. He is also ordered to check his blood sugars 3 times a day, he is being provided with a prescription for a glucometer test strips and lancets. Patient was also provided with a prescription for metformin to be taken daily by mouth. Procedures Performed: none Results and Findings: Pending Mircobiology Results 09/01/19 19:58 Blood Blood Culture - Preliminary NO GROWTH 24 HOURS 09/01/19 18:50 Blood Blood Culture - Preliminary NO GROWTH 24 HOURS Lab Pending Results 09/01/19 18:53: WBC 15.3 H, RBC 5.35, Hgb 16.6, Hct 47.7, MCV 89.2, MCH 31.0, MCHC 34.8, RDW 13.4, Plt Count 276, MPV 9.8, Immature Gran % (Auto) 0.70 H, Immature Gran # (Auto) 0.10 H, Neutrophils % 86.2 H, Lymphocytes % 8.1 L, Monocytes % 4.4, Eosinophils % 0.3, Basophils % 0.3, Nucleated RBC % 0.0, Neutrophils # 13.2 H, Lymphocytes # 1.23 L, Monocytes # 0.7, Eosinophils # 0.1, Absolute Basophils 0.0 09/01/19 18:58: Urine Color Yellow, Urine Appearance Clear, Urine pH 5.5, Ur Specific [place] 1.030, Urine Protein 30 H, Urine Glucose (UA) >=1000 H, Urine Ketones Negative, Urine Blood 5 H, Urine Nitrate Negative, Urine Bilirubin Ne gative, Prot Sulfosalicylic Acd 1+, Urine Urobilinogen Normal, Ur Leukocyte Esterase Negative, Urine RBC 0-5, Urine WBC None seen, Ur Epithelial Cells 0-5, Urine Bacteria None seen, Urine Culture Comments No culture indicated 09/01/19 19:00: PT 10.2, INR (Anticoag Therapy) 1.03 09/01/19 19:00: Sodium 133, Plasma Sodium 136, Potassium 4.5, Chloride 98, Carbon Dioxide 23.1 L, Anion Gap 16.4 H, BUN 29 H, Creatinine 1.13, Est GFR (Non-Af Amer) 80, BUN/Creatinine Ratio 25.7 H, Random Glucose 284 H, Calcium 9.2, Calcium Adj for Albumin 8.7, Total Bilirubin 0.5, AST 31, ALT 79 H, Alkaline Phosphatase 75, Total Protein 7.5, Albumin 4.2, Lipase 7362 H 09/01/19 19:00: Lactic Acid, Venous 2.8 H* 09/01/19 22:00: Lactic Acid, Venous 2.8 H* 09/01/19 22:05: C-Reactive Prot, Quant 0.4 09/01/19 22:32: ESR 6 09/02/19 06:16: WBC 15.7 H, RBC 4.88, Hgb 15.3, Hct 44.0, MCV 90.2, MCH 31.4 H, MCHC 34.8, RDW 13.7, Plt Count 264, MPV 9.9, Immature Gran % (Auto) 0.40, Immature Gran # (Auto) 0.06 H, Neutrophils % 85.7 H, Lymphocytes % 7.8 L, Monocytes % 5.9, Eosinophils % 0.1, Basophils % 0.1, Nucleated RBC % 0.0, Neutrophils # 13.5 H, Lymphocytes # 1.23 L, Monocytes # 0.9, Eosinophils # 0.0, Absolute Basophils 0.0 09/02/19 06:16: Sodium 136, Plasma Sodium 138, Potassium 4.3, Chloride 101, Carbon Dioxide 23.6 L, Anion Gap 15.7 H, BUN 24 H, Creatinine 0.96, Est GFR (Non-Af Amer) 97 D, BUN/Creatinine Ratio 25.0 H, Random Glucose 222 H, Calcium 8.8, Calcium Adj for Albumin 8.6, Total Bilirubin 0.5, AST 25, ALT 64, Alkaline Phosphatase 70, Total Protein 7.0, Albumin 3.8, Amylase 321 H, Lipase 5319 H 09/02/19 06:16: Mean Blood Glucose 137, Hemoglobin A1c 6.7 H 09/03/19 06:05: Sodium 137, Plasma Sodium 138, Potassium 4.1, Chloride 101, Carbon Dioxide 24.5, Anion Gap 15.6 H, BUN 18, Creatinine 0.89, Est GFR (Non-Af Amer) 106, BUN/Creatinine Ratio 20.2, Random Glucose 185 H, Calcium 8.5, Calcium Adj for Albumin 8.7, Total Bilirubin 0.6, AST 18, ALT 49, Alkaline Phosphatase 65, Total Protein 6.5, Albumin 3.3 L, Amylase 122 H, Lipase 1710 H 09/03/19 06:05: WBC 11.9 H D, RBC 4.46 L, Hgb 13.8, Hct 41.3 L, MCV 92.6, MCH 30.9, MCHC 33.4, RDW 13.8, Plt Count 208, MPV 10.3, Immature Gran % (Auto) 0.40, Immature Gran # (Auto) 0.05 H, Neutrophils % 76.8 H, Lymphocytes % 15.1 L, Monocytes % 5.5, Eosinophils % 1.9, Basophils % 0.3, Nucleated RBC % 0.0, Neutrophils # 9.1 H, Lymphocytes # 1.79, Monocytes # 0.7, Eosinophils # 0.2, Absolute Basophils 0.0 Discharge Location: Home Disposition: Home self-care Condition: Stable Face to Face Encounter completed per CMS Guidelines: No Discharge Activity: Activity as tolerated Discharge Diet: Low fat/chol Referrals: Cesar,Leilani, MD [Primary Care Provider] - Additional Patient Instructions (free text): Will need blood glucose meter, lancets, and test strips to check blood sugars. Prescriptions (Any new or edited meds): [facility] Transmission Status: Pending to [place], [place] Blood Sugar Diagnostic [Blood Glucose Test] 1 [facility] ACHS #90 strip Transmission Status: Pending to [place], [place] Lancets [[facility]ets] [facility] Transmission Status: Pending to [place], [place] metroNIDAZOLE [Flagyl] 500 mg PO Q12H 4 Days #8 tab Transmission Status: Pending to [place], [place] metFORMIN HCL [Metformin HCl] 500 mg PO DAILY #30 solution Transmission Status: Pending to [place], [place] Famotidine [Pepcid] 20 mg IV BID 30 Days #30 vial Transmission Status: Pending to [place], [place] traMADol HCL [Tramadol HCl] 50 mg PO Q6H PRN #30 tablet PRN Reason: Pain Transmission Status: Received by [place], [place] Complete Home Medications List: Complete Home Medication List: Atorvastatin Calcium 40 mg PO HS 10/03/15 Aspirin 81 mg PO DAILY 10/04/15 metoprolol tartrate 50 mg tablet 150 mg PO BID tab 04/27/18 spironolactone 50 mg tablet 50 mg PO DAILY 08/22/19 methylprednisolone 4 mg tablets in a dose pack See Rx Instructions PO PER PKG DIR #21 tab 08/26/19 Verapamil HCl [Verapamil ER] 360 mg PO DAILY 09/01/19 Blood Sugar Diagnostic [facility] 09/03/19 Blood-Glucose Meter [Blood Glucose Meter] [facility] 09/03/19 Clonidine HCl [Catapres] 0.1 mg PO BID tablet 09/03/19 Famotidine [Pepcid] 20 mg IV BID 30 Days #30 vial 09/03/19 Lancets [Blood Lancets] [facility] 09/03/19 Losartan Potassium [Cozaar] 50 mg PO DAILY tablet 09/03/19 metFORMIN HCL [Metformin HCl] 500 mg PO DAILY #30 solution 09/03/19 metroNIDAZOLE [Flagyl] 500 mg PO Q12H 4 Days #8 tab 09/03/19 traMADol HCL [Tramadol HCl] 50 mg PO Q6H PRN #30 tablet 09/03/19
[2019-09-03 15:09] VITALS: BP 146/65
[2019-09-03] MEDS ORDERED: METOPROLOL TARTRATE 100 MG, METOPROLOL TARTRATE 50 MG PO SCH ×2 (21:00)
== END 2019-09-03 15:40 | disposition home or self-care (01) | DRG 439 ==
LOC: ER 18:40 → MS 20:37
PROVIDERS: ADMIT Family Medicine; ATTEND Family Medicine
CPT/HCPCS: 36415; 74000; 74018; 74177; 80053; 81001; 82150; 83036; 83605; 83690; 85025; 85610; 85652; 86140; 87040; 96365; 96375; 99284; Q9967